=== PATIENT | male | born 1990 | race Two or more races ===

== ENCOUNTER 2024-11-04 15:13 | Emergency (ER) | payer OTHER ==
[~2024-11-04] VITALS: Ht 177.8 cm; Wt 122.5 kg
[2024-11-04] MEDS ORDERED: KETOROLAC TROMETHAMINE 30 MG VIAL IM STA (17:18)
== END 2024-11-04 18:40 | disposition home or self-care (01) ==
LOC: ER 15:16
DX: M25.511 Pain in right shoulder (principal)